=== PATIENT | female | born 1955 | race Caucasian/White ===

== ENCOUNTER → 2020-02-11 | Outpatient (CLI) | payer MEDICARE, OTHER ==
--- NOTE | 2020-02-11 13:16 | Diagnostic Imaging Report ---
INDICATION: Lower abdominal pain and right flank pain. TIME OF EXAM: 01:06 p.m. FINDINGS: No free air is identified. The bowel gas pattern is nonobstructed. No definite pathologic calcifications are identified. IMPRESSION: No acute abnormality is detected. Dictated by: Dictated on workstation # [id number]
== END ==
LOC: RAD FS 12:50
PROVIDERS: ATTEND Nurse Practitioner Family
DX: N30.91 Cystitis, unspecified with hematuria (principal)
CPT/HCPCS: 74018